=== PATIENT | female | born 1950 | race Caucasian/White ===

== ENCOUNTER → 2023-07-20 | Outpatient (CLI) | payer BC ==
[2023-07-20 15:14] VITALS: BP 145/71; PULSE 60; RESP 16; TEMP 98.6
--- NOTE | 2023-07-20 17:29 | P.SLEEP ---
History of Present Illness H&P Date: 07/20/23 This is a 73-year-old female patient is coming in for further advice regarding obstructive sleep apnea. The patient is a retired nurse and currently she is living in [place]. Due to her job, she has traveled all around the country and she has also worked in various locations in the [facility]. She was diagnosed having obstructive sleep apnea and the diagnosis established at [facility]. The original polysomnography is not available. Nevertheless, back then, the patient was offered a APAP unit and she currently has a ResMed 10 which is set in APAP mode pressures of 5/12 cm of water. She was also given an AirFit F30 a medium size fullface mask. Based on the compliancy checked on the machine, the patient has has not been using her machine as she has not seen a great difference in her sleep quality or daytime functionality while being on or off the treatment. Over the past 365 days, the patient has used the machine only 15 days and she has hemorrhage on 6.3 hours per night. Average pressure delivered on those days were 10.6 cm of water and the leak was 10 L/min and her AHI was down to 3.6. She has been much interested in reevaluation and To see if she has any issues with ongoing sleep apnea. Her comorbid conditions include paroxysmal atrial fibrillation her current rhythm is sinus. She states that she has history of snoring. No witnessed apneas patient is living alone. Denies waking up in the middle of the night choking or gasping for air. No issues with nocturia. No issues with insomnia. No major hypersomnia or sleepiness during the day. Does not fall asleep while driving. She sleeps at around 2 AM and she gets out of bed at around 10 AM and her current [place] score is at 4. No morning headaches. No episodes of falling asleep while driving her car. No vivid dreams. No sleep paralysis. No hallucinations. No recent weight gain or weight loss. Her weight has been essentially stable. Review of Systems Constitutional: Reports fatigue Eyes: denies as per HPI, denies blurred vision, denies bulging eye, denies decreased vision, denies diplopia, denies discharge, denies dry eye, denies irritation, denies itching, denies pain, denies photophobia, denies loss of peripheral vision, denies loss of vision, denies tunnel vision/blind spots Ears: deny: decreased hearing, ear discharge, earache, tinnitus Ears, nose, mouth and throat: Reports as per HPI Breasts: absent: as per HPI, change in shape, gynecomastia, masses, nipple discharge, pain, skin changes, swelling Cardiovascular: Reports as per HPI Respiratory: Reports sleep apnea Gastrointestinal: Reports as per HPI Genitourinary: Reports as per HPI Menstruation: Reports as per HPI Musculoskeletal: Reports as per HPI Musculoskeletal: absent: ankle pain, ankle stiffness, ankle swelling Integumentary: Reports as per HPI Neurological: Reports as per HPI Psychiatric: Reports as per HPI Endocrine: Reports as per HPI, Reports fatigue Hematologic/Lymphatic: Reports as per HPI Allergic/Immunologic: Reports as per HPI Past Medical History Past Medical History: Atrial Fibrillation, Asthma, Hyperlipidemia, Hypertension, Sleep Apnea/CPAP/BIPAP Additional Past Medical History / Comment(s): Thallesemia (mediterranean anemia), Depression History of Any Multi-Drug Resistant Organisms: None Reported Past Surgical History: Tonsillectomy Additional Past Surgical History / Comment(s): D&C, Myomectomy, Past Anesthesia/Blood Transfusion Reactions: No Reported Reaction Past Psychological History: Depression Smoking Status: Former smoker Past Alcohol Use History: Rare Past Drug Use History: None Reported - Past Family History Mother Family Medical History: AFIB, Hyperlipidemia, Hypertension, Thyroid Disorder Additional Family Medical History / Comment(s): restless legs Medications and Allergies Home Medications Medication Instructions Recorded Confirmed Type Apixaban [Eliquis] 5 mg PO BID 07/20/23 07/20/23 History Atorvastatin [Lipitor] 20 mg PO HS 07/20/23 07/20/23 History Escitalopram [Lexapro] 10 mg PO DAILY 07/20/23 07/20/23 History Levothyroxine Sodium 75 mcg PO DAILY 07/20/23 07/20/23 History Lisinopril-Hctz 20-12.5 mg 20 mg PO BID 07/20/23 07/20/23 History [Zestoretic 20-12.5] Metoprolol Succinate [Kapspargo 25 mg PO DAILY 07/20/23 07/20/23 History Sprinkle] Propafenone HCl [Rythmol Sr] 325 mg PO BID 07/20/23 07/20/23 History Allergies Allergy/AdvReac Type Severity Reaction Status Date / Time animal dander Allergy Severe asthma Unverified 07/20/23 14:51 Physical Exam Vitals: Vital Signs Temp Pulse Resp BP Pulse Ox 07/20/23 14:36 98.6 F 60 16 145/71 95 Intake and Output 07/20/23 07/20/23 07/20/23 06:59 14:59 22:59 Other: Weight 102.512 kg The patient appeared well nourished and normally developed. Vital signs as documented. Head exam is unremarkable. No scleral icterus or corneal arcus noted. Neck is without jugular venous distension, thyromegaly, or carotid bruits. Carotid upstrokes are brisk bilaterally. Lungs are clear to auscultation and percussion. Cardiac exam reveals the PMI to be normally sized and situated. Rhythm is regular. First and second heart sounds normal. No murmurs, rubs or gallops. Abdominal exam reveals normal bowel sounds, no masses, no organomegaly and no aortic enlargement. Extremities are nonedematous and both femoral and pedal pulses are normal. Examination of the skin revealed no evidence of significant rashes, suspicious appearing nevi or other concerning lesions. Neurologically, the patient is awake and alert and the patient does not have any focal neurological deficit. Cranial nerves are essentially intact. Assessment and Plan Plan: Obstructive sleep apnea, diagnosed back in 2019 through an outside sleep center, specifically at [facility] in [place], [place]. The patient is currently off treatment. No major changes in her symptoms while being off or on treatment. She was offered an APAP unit pressures of 5/12 cm of water. Compliance data was checked and her usage was suboptimal. Nevertheless, the treatment has been successful on those days that she used the machine. Chronic fatigue, limited sleepiness and her current [place] score is at 4 Obesity with a BMI of 34 Paroxysmal atrial fibrillation the current rhythm is sinus Hypothyroidism Hypertension Depression Mild intermittent bronchial asthma Hyperlipidemia Thalassemia minor trait Plan This patient is needed for reevaluation. Will hold off on CPAP therapy for now and will check a home sleep study to evaluate the presence and ongoing need for CPAP therapy and will make further recommendations accordingly. We should be able to utilize her own machine if sleep apnea is diagnosed in this patient. I will make the appropriate adjustments in the pressure setting in the mask interface should there be need for CPAP therapy. Prior recommendation will be done based on the results of the home sleep study. Encourage weight loss. Maintain good sleep hygiene measures. Will continue to follow. Sleep Note - Sleep Data ESS Total: 4 - Sleep Note Sleep Note: Temperature: 98.6 F Pulse Rate: 60 Respiratory Rate: 16 Blood Pressure: 145/71 SpO2: 95 Height: 5 ft 8 in Weight: 102.512 kg BMI: Neck Circumference: 15.7
== END ==
LOC: 3 N SLEEP 13:39
PROVIDERS: ATTEND Internal Medicine Critical Care Medicine
DX: G47.33 Obstructive sleep apnea (adult) (pediatric) (principal); R53.82 Chronic fatigue, unspecified; E66.9 Obesity, unspecified; I48.0 Paroxysmal atrial fibrillation; E03.9 Hypothyroidism, unspecified; I10 Essential (primary) hypertension; F32.A Depression, unspecified; J45.20 Mild intermittent asthma, uncomplicated; E78.5 Hyperlipidemia, unspecified; D56.3 Thalassemia minor; Z68.34 Body mass index [BMI] 34.0-34.9, adult; Z91.09 Other allergy status, other than to drugs and biological substances; Z79.01 Long term (current) use of anticoagulants; Z79.899 Other long term (current) drug therapy; Z79.890 Hormone replacement therapy; Z87.891 Personal history of nicotine dependence
CPT/HCPCS: 99202

== ENCOUNTER → 2023-07-26 | Outpatient (CLI) | payer BC ==
--- NOTE | 2023-08-01 23:52 | P.PCN ---
Date of Procedure: 07/26/23 Operative Findings: Home sleep study testing Date of services 07/26/2023 Pertinent history This is a 73-year-old female patient with known history of obstructive sleep apnea diagnosed back in 2019. This was done through an outside sleep center. This was done through a sleep center out of [facility]. The patient is currently off treatment. She has a CPAP unit which is set at a pressure of 5/12 cm of water. The patient's compliance was checked in the usage was suboptimal. She has chronic fatigue and sleepiness and her [place] score is at 4. She is obese with a BMI of 34. She has paroxysmal atrial fibrillation and currently in the sinus. She has also hypertension, hypothyroidism, mild intermittent bronchial asthma, hyperlipidemia and depression along with thalassemia minor trait Pertinent physical findings The patient has a height of 5 feet and 8 inches, weight is 102 kg and the body mass index is 34 0.3 Results Respiratory analysis showed a total of 17 obstructive apneas and a total of 165 obstructive hypopneas. The resulting AHI was 24.4 Oxygenation analysis The patient had a total of 181 oxygen desaturations with a minimum pulse ox of 80%, average pulse ox during sleep was 89% and the baseline pulse ox was 94% once awake. The patient spent approximately 2 hours and 45 minutes of the sleep time below pulse ox of 89% Cardiac summary Average heart rate was 68 minimum heart rate of 53 and a maximum heart of 75 Assessment Obstructive sleep apnea, moderate in severity with an AHI of 24.4 Nocturnal oxygen desaturation secondary to above with a minimum pulse ox of 80% Obesity BMI 34 Chronic hypersomnia with an [place] score of 4 Plan Patient has symptomatic obstructive sleep apnea. Recommend going back on her CPAP unit. The patient has a functional CPAP machine which is set to the pressures of 5/12 cm of water. Will suggest continuing the same pressures for now and do a short-term evaluation in my office. She was also offered an AirFit F30 medium size fullface mask in the office. Will continue to follow.
== END ==
LOC: 3 N SLEEP 13:06
PROVIDERS: ATTEND Internal Medicine Critical Care Medicine
DX: G47.33 Obstructive sleep apnea (adult) (pediatric) (principal); G47.10 Hypersomnia, unspecified; G47.36 Sleep related hypoventilation in conditions classified elsewhere; E03.9 Hypothyroidism, unspecified; E66.9 Obesity, unspecified; E78.5 Hyperlipidemia, unspecified; F32.A Depression, unspecified; I10 Essential (primary) hypertension; I48.0 Paroxysmal atrial fibrillation; J45.909 Unspecified asthma, uncomplicated; Z68.34 Body mass index [BMI] 34.0-34.9, adult; Z91.09 Other allergy status, other than to drugs and biological substances; Z79.890 Hormone replacement therapy; Z79.01 Long term (current) use of anticoagulants; Z79.899 Other long term (current) drug therapy